=== PATIENT | female | born 1985 | race Caucasian/White ===

== ENCOUNTER → 2016-09-24 | Outpatient (CLI) | payer OTHER ==
--- NOTE | 2016-09-24 09:48 | DI ---
RIGHT BREAST ULTRASOUND, 09/24/2016 8:46 AM: Clinical History: Right breast lump at the 11:00 position in a 31-year-old patient. The patient indic ated it was more toward the 12:00 position. Scans are performed by the technologist and myself through all four quadrants of the right breast wit h the high resolution linear array probe. Color Doppler ultrasound was also performed. Scans reveal no solid or cystic mass. Specifically, no lesion is seen in the upper half of the breast particularly between the 11:00 and 12:00 position. Only normal fibroglandular tissue is seen. Follow Up: The patient was advised to perform monthly self breast examinations to monitor the lesion over the next 2 - 3 months. She was instructed to contact her health care provider promptly if the fritz mp becomes larger during that time. Otherwise, if the lump disappears or remains stable, she was advi sed to have a follow-up breast clinical examination with her health care provider in approximately 2 - 3 months to verify those findings of the patient. If at the time of the breast clinical examination there is still clinical concern regarding this lesion, then a right diagnostic mammogram and surgica l consultation would be indicated. BIRADS Category: 1. Negative. No discrete palpable mass was appreciated and no abnormality in the are a of question was noted by ultrasound. Assessment: Negative.
== END ==
LOC: US 08:44
PROVIDERS: ATTEND Physician Assistant Medical
DX: N63 Unspecified lump in breast (principal)
CPT/HCPCS: 76641